=== PATIENT | female | born 1980 | race African-American/Black ===

== ENCOUNTER 2021-07-04 05:45 | Emergency (ER) | payer SELFPAY ==
[~2021-07-04] VITALS: Ht 165.1 cm; Wt 76.5 kg
[2021-07-04 05:59] VITALS: BP 118/83
[2021-07-04 06:56] LABS: COVID AG,FIA SOURCE NASAL SWAB
== END 2021-07-04 11:45 | disposition home or self-care (01) ==
LOC: EDUNIT# 05:45 → EMS 05:56
DX: O99.511 Diseases of the respiratory system complicating pregnancy, first trimester (principal); O99.331 Smoking (tobacco) complicating pregnancy, first trimester; O26.891 Other specified pregnancy related conditions, first trimester; J40 Bronchitis, not specified as acute or chronic; F17.210 Nicotine dependence, cigarettes, uncomplicated; Z20.822 Contact with and (suspected) exposure to COVID-19; Z3A.01 Less than 8 weeks gestation of pregnancy
CPT/HCPCS: 99283